=== PATIENT | male | born 1970 | race Caucasian/White ===

== ENCOUNTER 2016-12-19 17:50 | Emergency (ER) | payer BC ==
[2016-12-19 18:00] VITALS: BP 128/78; PULSE 87; TEMP 98.7; BMI 28.3
--- NOTE | 2016-12-19 18:57 | PDOC ---
History of Present Illness - General History Source: Patient, Old Records Exam Limitations: No Limitations - History of Present Illness Initial Comments: The patient is a 46 year old male with no significant past medical history, who presents to the emergency department today for further evaluation of worsening urinary urgency and dysuria for two weeks. States he is sexually active with his only. Denies sexual transmitted diseases. He denies any other medical complaints at this time. <Eran Lucas - Last Filed: 12/19/16 18:59> - General History Source: Patient Exam Limitations: No Limitations <Carlos Patel - Last Filed: 12/19/16 19:09> - General Chief Complaint: Urinary Problem Stated Complaint: URGENCY, DRIBBLING, SOME BURNING Time Seen by Provider: 12/19/16 18:23 Past History <Eran Lucas - Last Filed: 12/19/16 18:59> - Past Medical History Other medical history: DENIES - Psycho/Social/Smoking Cessation Hx Anxiety: No Suicidal Ideation: No Smoking History: Never smoked Have you smoked in the past 12 months: No Information on smoking cessation initiated: No Hx Alcohol Use: No Drug/Substance Use Hx: No Substance Use Type: Alcohol <Carlos Patel - Last Filed: 12/19/16 19:09> - Past Medical History Allergies/Adverse Reactions: Allergies Allergy/AdvReac Type Severity Reaction Status Date / Time No Known Allergies Allergy Verified 12/19/16 17:51 Home Medications: Ambulatory Orders Ciprofloxacin [Cipro -] 500 mg PO Q12H #14 tablet 12/19/16 Multivitamins [Tab-A-Vit -] 1 tab PO DAILY 12/19/16 Review of Systems - Review of Systems Able to Perform ROS?: Yes Comments:: GENERAL/CONSTITUTIONAL: No fever or chills. No weakness. HEAD, EYES, EARS, NOSE AND THROAT: No change in vision. No ear pain or discharge. No sore throat. CARDIOVASCULAR: No chest pain or shortness of breath. RESPIRATORY: No cough, wheezing, or hemoptysis. GASTROINTESTINAL: No nausea, vomiting, diarrhea or constipation. GENITOURINARY: (+) dysuria, urgency. MUSCULOSKELETAL: No joint or muscle swelling or pain. No neck or back pain. SKIN: No rash NEUROLOGIC: No headache, vertigo, loss of consciousness, or change in strength/ sensation. ENDOCRINE: No increased thirst. No abnormal weight change. HEMATOLOGIC/LYMPHATIC: No anemia, easy bleeding, or history of blood clots. ALLERGIC/IMMUNOLOGIC: No hives or skin allergy. <Eran Lucas - Last Filed: 12/19/16 18:59> *Physical Exam - Vital Signs Last Vital Signs Temp Pulse Resp BP Pulse Ox 98.7 F 87 18 128/78 100 12/19/16 17:50 12/19/16 17:50 12/19/16 17:50 12/19/16 17:50 12/19/16 17:50 - Physical Exam Comments: GENERAL: Awake, alert, and fully oriented, in no acute distress HEAD: No signs of trauma EYES: PERRLA, EOMI, sclera anicteric, conjunctiva clear ENT: Auricles normal inspection, hearing grossly normal, nares patent, oropharynx clear without exudates. Moist mucosa NECK: Normal ROM, supple, no lymphadenopathy, JVD, or masses LUNGS: Breath sounds equal, clear to auscultation bilaterally. No wheezes, and no crackles HEART: Regular rate and rhythm, normal S1 and S2, no murmurs, rubs or gallops ABDOMEN: Soft, nontender, normoactive bowel sounds. No guarding, no rebound. No masses EXTREMITIES: Normal range of motion, no edema. No clubbing or cyanosis. No cords, erythema, or tenderness NEUROLOGICAL: Cranial nerves II through XII grossly intact. Normal speech, normal gait SKIN: Warm, Dry, normal turgor, no rashes or lesions noted. <Eran Lucas - Last Filed: 12/19/16 18:59> - Vital Signs Last Vital Signs Temp Pulse Resp BP Pulse Ox 98.7 F 87 18 128/78 100 12/19/16 17:50 12/19/16 17:50 12/19/16 17:50 12/19/16 17:50 12/19/16 17:50 <Carlos Patel - Last Filed: 12/19/16 19:09> Medical Decision Making - Medical Decision Making 12/19/16 18:55 A portion of this note was documented by scribe services under my direction. I have reviewed the details of the note, within reason, and agree with the documentation with the following case summary and management plan written by me. Patient treated in the ED. Nursing notes are reviewed and incorporated into the medical decision-making. Vital signs reviewed. Peripheral IV access obtained by the nurse, laboratory studies are drawn and sent, reviewed and interpreted by myself. Vital Signs Temp Pulse Resp BP Pulse Ox 98.7 F 87 18 128/78 100 12/19/16 17:50 12/19/16 17:50 12/19/16 17:50 12/19/16 17:50 12/19/16 17:50 46-year-old male with no past medical history presents with dysuria and tonight has evidence for 2 weeks. Denies abdominal pain, fevers, chills. States he is sexually active with his only. Denies sexual transmitted diseases. Differential includes enlarged prostate versus urinary tract infection. We'll obtain a urinalysis and urine culture and reassess. 12/19/16 19:07 Urine Test Results Urine Color Yellow 12/19/16 18:17 Urine Appearance Clear 12/19/16 18:17 Urine pH 5.0 (4.5-8) 12/19/16 18:17 Ur Specific [place] 1.020 (1.005-1.025) 12/19/16 18:17 Urine Protein Negative (NEGATIVE) 12/19/16 18:17 Urine Glucose (UA) Negative (NEGATIVE) 12/19/16 18:17 Urine Ketones Negative (NEGATIVE) 12/19/16 18:17 Urine Blood 2+ (NEGATIVE) H 12/19/16 18:17 Urine Nitrite Negative (NEGATIVE) 12/19/16 18:17 Urine Bilirubin Negative (NEGATIVE) 12/19/16 18:17 Ur Leukocyte Esterase 1+ (NEGATIVE) H 12/19/16 18:17 1+ leuk. Will treat as ciprofloxacin. I advised the patient to follow up with his PMD. Pt verbalizes understanding and agrees with plan. Discharge diagnosis: UTI I discussed the physical exam findings, ancillary test results and final diagnoses with the patient. I answered all of the patient's questions. The patient was satisfied with the care received and felt comfortable with the discharge plan and treatment plan. The patient will call their primary care physician within 24 hours to arrange follow-up and will return to the Emergency Department with any new, persistant or worsening symptoms. <Carlos Patel - Last Filed: 12/19/16 19:09> *DC/Admit/Observation/Transfer - Attestations Scribe Attestion: Documentation prepared by Eran Lucas, acting as medical recruiter for aCrlos Patel MD. <Eran Lucas - Last Filed: 12/19/16 18:59> - Discharge Dispostion Admit: No <Carlos Patel - Last Filed: 12/19/16 19:09> Diagnosis at time of Disposition: UTI (urinary tract infection) Qualifiers: Urinary tract infection type: site unspecified Hematuria presence: without hematuria Qualified Code(s): N39.0 - Urinary tract infection, site not specified - Discharge Dispostion Disposition: HOME Condition at time of disposition: Stable - Prescriptions Prescriptions: Ciprofloxacin [Cipro -] 500 mg PO Q12H #14 tablet - Patient Instructions Printed Discharge Instructions: DI for Urinary Tract Infection (UTI) Additional Instructions: Your urine shows sign of an infection. Please take the antibiotic (ciprofloxacin) every 12 hours for the next week. Drink plenty of fluids and rest. Please call and schedule an appointment with your doctor.
[2016-12-19 18:59] LABS: URINE APPEARANCE Clear; URINE BILIRUBIN Negative (NEGATIVE); URINE BLOOD 2+ (NEGATIVE); URINE COLOR YELLOW; URINE GLUCOSE (UA) Negative (NEGATIVE); URINE KETONE Negative (NEGATIVE); URINE LEUK ESTERASE 1+ (NEGATIVE); URINE NITRITE Negative (NEGATIVE); URINE PROTEIN Negative (NEGATIVE); URINE UROBILINOGEN 0.2 E.U/dl (0.2-1.0)
[2016-12-19] MEDS ORDERED: CIPROFLOXACIN 500 MG TABLET (RESTRICTED TO ID) PO ONE (19:08)
[2016-12-19 19:10] LABS: URINE BACTERIA FEW /hpf (NEGATIVE); URINE WBC 30-50 (3-5)
[2016-12-19] MEDS ORDERED: CIPROFLOXACIN 250 MG TABLET (RESTRICTED TO ID) PO ONE (19:12)
== END 2016-12-19 19:10 | disposition home or self-care (01) ==
LOC: FER 17:50
DX: N39.0 Urinary tract infection, site not specified (principal)
CPT/HCPCS: 81003; 81015; 87086; 87186; 99283-25

== ENCOUNTER 2018-06-29 11:10 | Emergency (ER) | payer BC, OTHER ==
[2018-06-29 11:19] VITALS: BP 132/91; TEMP 98.8; BMI 28.3
--- NOTE | 2018-06-29 13:29 | PDOC ---
History of Present Illness - General Chief Complaint: Pain Stated Complaint: RT ARM, NUMBNESS,RT WRIST PAIN, TINGLING, Time Seen by Provider: 06/29/18 13:06 History Source: Patient - History of Present Illness Initial Comments: 06/29/18 13:23 47m with pmh of neck osteoarthritis presents to the ED for neck pain radiating to the right wrist for the past 2 weeks. He had this problem for the past year and had had an MRI done at [facility] but the tingling used to travel down the left arm , now it is both. He works as a luggage handler for an airline and felt pain in his neck as he was lifting a luggage a month ago. Denies any other symptoms. Past History - Past Medical History Allergies/Adverse Reactions: Allergies Allergy/AdvReac Type Severity Reaction Status Date / Time No Known Allergies Allergy Verified 06/29/18 11:14 Home Medications: Ambulatory Orders NK [No Known Home Medication] 06/29/18 COPD: No Other medical history: ARHTRITIS UPPER BACK, NERVE PINCH, CARPAL TUNNER LEFT - Suicide/Smoking/Psychosocial Hx Smoking History: Never smoked Have you smoked in the past 12 months: No Information on smoking cessation initiated: No Hx Alcohol Use: (social) Drug/Substance Use Hx: No Substance Use Type: Alcohol Review of Systems - Review of Systems Able to Perform ROS?: Yes Is the patient limited Guamanian proficient: No Constitutional: No: Symptoms Reported HEENTM: No: Symptoms Reported Respiratory: No: Symptoms reported Cardiac (ROS): No: Symptoms Reported ABD/GI: No: Symptoms Reported : No: Symptoms Reported Musculoskeletal: Yes: See HPI Integumentary: No: Symptoms Reported Neurological: Yes: See HPI, Paresthesia, Tingling All Other Systems: Reviewed and Negative *Physical Exam - Vital Signs Last Vital Signs Temp Pulse Resp BP Pulse Ox 98.8 F 102 H 20 132/91 100 06/29/18 11:10 06/29/18 11:10 06/29/18 11:10 06/29/18 11:10 06/29/18 11:10 - Physical Exam General Appearance: Yes: Nourished, Appropriately Dressed. No: Apparent Distress HEENT: positive: EOMI, MADHAV, Normal ENT Inspection Neck: positive: Tender (point tendernes over left paraspinal cervical area) Respiratory/Chest: positive: Lungs Clear, Normal Breath Sounds. negative: Chest Tender, Respiratory Distress Cardiovascular: positive: Regular Rhythm, Regular Rate, S1, S2 Gastrointestinal/Abdominal: positive: Normal Bowel Sounds, Flat, Soft. negative : Tender Extremity: positive: Normal Capillary Refill, Normal Inspection, Normal Range of Motion Integumentary: positive: Normal Color, Dry Neurologic: positive: Fully Oriented, Alert, Normal Mood/Affect, Normal Response , Motor Strength 5/5, Numbness (tingling over median distribution on right hand : palmar side of first 3 fingers. ) Medical Decision Making - Medical Decision Making 06/29/18 14:02 Cervical radiculopathy secondary to osteoarthritis/slipped cervical disc vs carpal tunnel syndrom. Will provide patient with wrist sling and give follow up with orthopedic surgeon Dr. Ordonez. *DC/Admit/Observation/Transfer Diagnosis at time of Disposition: Radiculopathy affecting upper extremity, Carpal tunnel syndrome - Discharge Dispostion Disposition: HOME Condition at time of disposition: Stable Decision to Admit order: No - Referrals Referrals: Therese Dey MD [Primary Care Provider] - Benny Ordonez MD [Staff Physician] - - Patient Instructions Printed Discharge Instructions: Carpal Tunnel Syndrome, DI for Cervical Radiculopathy Additional Instructions: Follwo up with Dr. Ordonez, Orthopedic Surgeon. Come back to the ER for any new, worsening or concerning symptom. - Post Discharge Activity
--- NOTE | 2018-06-29 14:00 | PDOC ---
Attending Attestation - Resident Resident Name: Angelo Encarnacion - ED Attending Attestation I have performed the following: I have examined & evaluated the patient, The case was reviewed & discussed with the resident, I agree w/resident's findings & plan, Exceptions are as noted - HPI HPI: 06/29/18 14:04 47yo M hx carpal tunnel syndrome on the right, arthritis presents to the ED with 3 months of tingling to R 1st and 2nd finger on the palmar side as well as tingling down his R proximal arm when he turns his head to the right. [place] works [place] a out[place]. Denies any weakness in the hand. Has had a steroid injection in both wrists in the past that helped his sxs. Has been taking ibuprofen with moderate relief. Denies trauma, falls, headache, visual sxs, dizziness, cp, sob, abd pain, n/v/d, urinary sxs, rashes. - Physicial Exam PE: 06/29/18 14:08 GENERAL: Awake, alert, and fully oriented, in no acute distress EYES: PERRLA, EOMI, sclera anicteric, conjunctiva clear ENT: Oropharynx clear without exudates. Moist mucosa NECK: Normal ROM, supple, no midline spinal ttp BACK: no midline thoracic or lumbar ttp LUNGS: Breath sounds equal, clear to auscultation bilaterally. No wheezes, and no crackles HEART: Regular rate and rhythm, normal S1 and S2, no murmurs, rubs or gallops ABDOMEN: Soft, nontender, normoactive bowel sounds. No guarding, no rebound. No masses EXTREMITIES: Normal range of motion, no edema. No cords, erythema, or tenderness NEUROLOGICAL: Normal speech, cranial nerves intact, 5/5 strength in all 4 extremities, decreased sensation to palmar aspect of R 1st and second digits, normal cerebellar exam, normal gait. +Tinnels test. Able to illicit numbness down RUE when turning head to the right SKIN: Warm, Dry, normal turgor, no rashes or lesions noted. - Medical Decision Making 06/29/18 14:10 47yo M presents to the ED with tingling to R 1st and 2nd digit consistent with median nerve impingement due to carpal tunnel syndrome. Pt also has tingling to RUE when turning head to the right consistent with cervical radiculopathy. Pt reporting improvement in sxs in the past with steroid injections but due to the holiday wknd, pt unable to see his doctor. Pt feeling better with brace on wrist , will prescribe naproxen for sx control. No CP, SOB, and sxs are not exertional thus no concern for cardiac risk factors. 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 Pt requests DC home I discussed the physical exam findings, ancillary test results and final diagnoses with the patient. I answered all of the patient's questions. The patient was satisfied with the care received and felt comfortable with the discharge plan and treatment plan. The patient will call their primary care physician within 24 hours to arrange follow-up and will return to the Emergency Department with any new, persistent or worsening symptoms.
[2018-06-29 14:07] VITALS: PULSE 87
== END 2018-06-29 14:10 | disposition home or self-care (01) ==
LOC: SUPCPDRO 11:10 → FER 11:10
DX: M54.10 Radiculopathy, site unspecified (principal); G56.00 Carpal tunnel syndrome, unspecified upper limb
CPT/HCPCS: 99283-25

== ENCOUNTER 2018-11-27 18:22 | Emergency (ER) | payer BC ==
[2018-11-27 18:35] VITALS: BP 135/94; PULSE 76; TEMP 97.8; BMI 27.9
[2018-11-27] MEDS ORDERED: predniSONE 20 MG TABLET (UD) PO ONE (19:48)
[2018-11-27] MEDS ORDERED: predniSONE 20 MG TABLET (UD) ONE (19:49)
--- NOTE | 2018-11-27 19:50 | PDOC ---
Documentation entered by Jose Jiang SCRIBE, acting as scribe for Daniel Maradiaga MD. Daniel Maradiaga MD: This documentation has been prepared by the Deidre cooper Juan Manue, SCRIBE, under my direction and personally reviewed by me in its entirety. I confirm that the documentation accurately reflects all work, treatment, procedures, and medical decision making performed by me. History of Present Illness - General Chief Complaint: Pain Stated Complaint: neck pain Time Seen by Provider: 11/27/18 19:25 History Source: Patient Exam Limitations: No Limitations - History of Present Illness Initial Comments: 11/27/18 19:52 The patient is a 48 year old male, who presents to the ED complaining of neck pain for the past 6 days. He reports that his pain ranges from mild to moderate , and limits the turning of his head to the sides. The patient notes taking Aleve and Advil every 6 hours with minimal relief of his symptoms. He notes that he did paint a room where he had to paint the ceiling, stretching his neck backwards. He states that this may have exacerbated his arthritis neck. He notes that he does have an orthopedic to follow up with. The patient denies chest pain, shortness of breath, headache and dizziness. PAST MEDICAL HISTORY: Arthritis neck PAST SURGICAL HISTORY: no significant history FAMILY HISTORY: no pertinent history SOCIAL HISTORY: Pt lives with family and is employed. MEDICATIONS: reviewed ALLERGIES: As per nursing notes General: No fevers or chills, no weakness, no weight loss HEENT: No change in vision. No sore throat,. No ear pain CardioVascular: No chest pain or shortness of breath Respiratory:No cough, or wheezing. Gastrointestinal: no nausea, vomiting, diarrhea or constipation, No rectal bleeding Genitourinary: No dysuria, hematuria, or frequency Musculoskeletal: (+) Neck pain. No joint or muscle pain or swelling Neurologic: No headache, vertigo, dizziness or loss of consciousness Psychiatric: nor depression Skin: No rashes or easy bruising Endocrine: no increased thirst or abnormal weight change Allergic: no skin or latex allergy All other systems reviewed and normal General: Well-nourished well-developed individual, no acute distress HEENT: Throat: Normal, tonsils normal, no erythema or exudate Neck: Supple, no meningeal signs, no lymphadenopathy Chest: Nontender to palpation Cardiac: S1-S2 normal, regular rate and rhythm, no murmurs rubs or gallops Respiratory: Lungs clear to auscultation bilateral Skin: No rashes Neuro: Alert and oriented x3, nonfocal exam, grossly intact, normal gait Assessment and plan: This is a 48-year-old male with neck pain/torticollis patient has had symptoms times several days. Patient said they began after he was doing some painting over his head. Patient has been taking some anti- inflammatories but otherwise has not followed up with anybody. I recommended the patient continued to take out of time inflammatory's for a few more days and follow-up with his doctor early next week if not improved. I also gave him a prescription for a muscle relaxant that he can take at night. Past History - Past Medical History Allergies/Adverse Reactions: Allergies Allergy/AdvReac Type Severity Reaction Status Date / Time No Known Allergies Allergy Verified 11/27/18 18:23 Home Medications: Ambulatory Orders Cyclobenzaprine HCl [Flexeril 10 mg] 10 mg PO HS #14 tablet 11/27/18 COPD: No Other medical history: arthirits neck - Suicide/Smoking/Psychosocial Hx Smoking History: Never smoked Have you smoked in the past 12 months: No Hx Alcohol Use: Yes (socially) Drug/Substance Use Hx: No Substance Use Type: Alcohol *Physical Exam - Vital Signs Last Vital Signs Temp Pulse Resp BP Pulse Ox 97.8 F 76 18 135/94 99 11/27/18 18:23 11/27/18 18:23 11/27/18 18:23 11/27/18 18:23 11/27/18 18:23 *DC/Admit/Observation/Transfer Diagnosis at time of Disposition: Torticollis, acquired - Discharge Dispostion Disposition: HOME Condition at time of disposition: Stable Decision to Admit order: No - Prescriptions Prescriptions: Cyclobenzaprine HCl [Flexeril 10 mg] 10 mg PO HS #14 tablet - Referrals - Patient Instructions Additional Instructions: Continue to take an anti-inflammatory Aleve 2 tablets twice a day. Addition to that get the prescription filled that I gave you for Flexeril and take one before bed. If not improved by a Sunday of next week follow up with an orthopedist. Return to the emergency department immediately with ANY new, persistent or worsening symptoms. Continue any medications as previously prescribed by your physician. You should follow up with your primary doctor as soon as possible regarding today's emergency department visit. . Please make sure your doctor reviews the results of your emergency evaluation. Thank you for coming to the Emergency Department today for your care. It was a pleasure to see you today. Please note that your evaluation is INCOMPLETE until you follow-up with your doctor. - Post Discharge Activity - Attestations Scribe Attestion: 11/27/18 19:52 Documentation prepared by Jose Jiang, acting as medical asst for Daniel Maradiaga MD
== END 2018-11-27 19:57 | disposition home or self-care (01) ==
LOC: FER 18:22
DX: M43.6 Torticollis (principal)
CPT/HCPCS: 99282-25

== ENCOUNTER 2019-01-22 15:28 | Emergency (ER) | payer BC ==
--- NOTE | 2019-01-22 15:38 | PDOC ---
History of Present Illness - General Chief Complaint: Eye Problem Stated Complaint: eye pain Time Seen by Provider: 01/22/19 15:38 - History of Present Illness Initial Comments: 01/22/19 16:09 The patient is a 48 year old male with no significant PMH who presents for evaluation of right eye pain. The patient reports intermittent right eye pain and redness over the past 1 week associated with wearing his contact lenses prompting his presentation to the ED for further evaluation. He notes that the patient improves with over the counter eye drops and wearing his glasses. He otherwise denies any visual disturbances, blurry vision, headache, fevers, chills, SOB, chest pain, nausea, vomiting, abdominal pain, or changes with urination or bowel movements. Past History - Past Medical History Allergies/Adverse Reactions: Allergies Allergy/AdvReac Type Severity Reaction Status Date / Time No Known Allergies Allergy Verified 01/22/19 15:29 Home Medications: Ambulatory Orders Sulfacetamide Sodium 10% [Bleph-10 Ophthalmic Solution -] 1 drop OD Q3H #1 bottle 01/22/19 COPD: No - Suicide/Smoking/Psychosocial Hx Smoking History: Never smoked Have you smoked in the past 12 months: No Hx Alcohol Use: Yes (socially) Drug/Substance Use Hx: No Substance Use Type: Alcohol Review of Systems - Review of Systems Comments:: 01/22/19 16:11 Constitutional: No fevers, chills, fatigue, malaise HEENT: Right Eye pain. No Rhinorrhea, nasal congestion, visual changes Cardiovascular: No chest pain, syncope, palpitations, lightheadedness Respiratory: No Cough, SOB, Hemoptysis, Gastrointestinal: No Abdominal pain, Nausea, Vomiting, Constipation, Diarrhea, Melena Genitourinary: No Dysuria, Frequency, Urgency, Hesitancy, Hematuria, Flank pain Musculoskeletal: No Myalgia, arthralgia Skin: No rashes, itching, bruising, pallor Neurologic: No Headache, Dizziness, Numbness, Weakness, or Tingling Psychiatric: No Hallucinations. No SI or HI *Physical Exam - Physical Exam Comments: 01/22/19 16:11 General Appearance: Nourished. No Apparent Distress HEENT: Visual Acute 20/40 RT eye and 20/25 in LT eye. PERRLA, EOMI, No Pharyngeal Erythema, Tonsillar Exudate, Tonsillar Erythema Neck: No Cervical Lymphadenopathy Respiratory/Chest: Lungs Clear, Normal Breath Sounds. No Crackles, Rales, Rhonchi, Wheezing Cardiovascular: Regular Rhythm, Regular Rate. No Murmur, Gallops, Rubs Gastrointestinal/Abdominal: Normal Bowel Sounds, Soft. No Guarding, Rebound, Tenderness Musculoskeletal: No CVA Tenderness Extremity: Normal Capillary Refill Integumentary: Normal Color, Dry, Warm Neurologic: Fully Oriented, Alert, Normal Mood/Affect, Normal Response, Medical Decision Making - Medical Decision Making 01/22/19 16:13 The patient is a 48 year old male with no significant PMH who presents for evaluation of right eye pain. Given the patient's history and physical exam, we performed a fluroscene stain on the patient's eye that did not demonstrate any evidence of corneal abrasion. However, given the patient's history, we will treat with sulfacetamide eye drops and have the patient follow up with his ophthomologist. We have instructed the patient to not wear his contacts until then. We are comfortable discharging the patient home in stable condition. Patient made aware of impression and plan, return precautions discussed including but not limited to worsening pain or symptoms, fevers, or signs of infection, chest pain, respiratory distress, inability to tolerate oral intake, dehydration, syncope, or neurologic changes. The patient is to follow up with PMD as recommended within 1 week, follow up information provided and the patient will call for an appointment. The patient is to take medications as instructed for duration of time and continue with supportive care, avoid triggers and precipitants. Patient is safe for outpatient follow-up. *DC/Admit/Observation/Transfer Diagnosis at time of Disposition: Eye pain Qualifiers: Laterality: right Qualified Code(s): H57.11 - Ocular pain, right eye - Discharge Dispostion Disposition: HOME Condition at time of disposition: Stable - Prescriptions Prescriptions: Sulfacetamide Sodium 10% [Bleph-10 Ophthalmic Solution -] 1 drop OD Q3H #1 bottle - Referrals - Patient Instructions Printed Discharge Instructions: DI for Eye Pain Additional Instructions: 1) Please follow-up with your primary care doctor in the next 2-3 days. Please call tomorrow to schedule a follow up appointment. If you cannot follow up with your doctor within 1 week please return to the Emergency Department for any urgent issues. 3) If you have any worsening of symptoms or any other concerns please return to the ER immediately. Return if worsening symptoms including fevers, headache, vomiting, visual or hearing disturbances, abdominal pain, chest pain, shortness of breath, syncope, dehydration, inability to take things by mouth/vomiting, altered mental status, or worsening concerning symptoms. 4) Please continue taking your home medications as directed. Side effects may include upset stomach, abdominal pain, vomiting, or diarrhea. Do not drink alcohol with your medications. - Post Discharge Activity
--- NOTE | 2019-01-22 15:41 | PDOC ---
Attending Attestation - Resident Resident Name: Marlo Melgar - ED Attending Attestation I have performed the following: I have examined & evaluated the patient, The case was reviewed & discussed with the resident, I agree w/resident's findings & plan, Exceptions are as noted - HPI HPI: 01/22/19 16:08 Recurrent eye irritation subsequent to wearing contact lenses. When he leaves the lenses out for 24-48 hours, symptoms resolved. Symptoms consistent irritation, minimal discharge, no change in vision. - Physicial Exam PE: 01/22/19 16:09 Physical exam: PERRLA, fundi benign, EOMs full without diplopia, visual pedraza intact to confrontation, visual acuity intact. Conjunctivae show no injection. No staining is evident with further seen. Anterior chamber is clear. No discharge at present. - Medical Decision Making 01/22/19 16:10 Assessment: Intermittent irritation from contact lenses or solution. No sign of significant corneal damage/abrasion/ulceration. Plan: No contact use until reevaluation by an director of optimization. Warm compresses and antibiotic drops as directed. Return to ER if there is significant pain or change in vision.
[2019-01-22] MEDS ORDERED: TETRACAINE 0.5% OPHTH SOLN 2 ML BOTTLE ONE (15:45)
[2019-01-22] MEDS ORDERED: TETRACAINE 0.5% HCL 0.6ML DROPPER.BOTTLE OD ONE (15:45)
[2019-01-22] MEDS ORDERED: FLUORESCEIN NA 1 EA STRIP ONE (15:45)
[2019-01-22] MEDS ORDERED: FLUORESCEIN NA 1 EA STRIP OD ONE (15:45)
[2019-01-22 15:54] VITALS: BP 129/88; PULSE 96; TEMP 98.6; BMI 28.3
== END 2019-01-22 16:16 | disposition home or self-care (01) ==
LOC: FER 15:28
DX: H57.11 Ocular pain, right eye (principal)
CPT/HCPCS: 99281-25

== ENCOUNTER 2019-08-20 18:15 | Emergency (ER) | payer BC ==
[2019-08-20 18:59] VITALS: BP 146/91; PULSE 88; TEMP 98.4; BMI 28.3
--- NOTE | 2019-08-20 19:08 | PDOC ---
History of Present Illness - General Chief Complaint: Edema Stated Complaint: SWELLING TO 4TH TOE LEFT SIDE Time Seen by Provider: 08/20/19 18:53 History Source: Patient Exam Limitations: No Limitations - History of Present Illness Initial Comments: 48 yo M with no past medical history presents to the emergency department with left foot 4th digit pain and a rash on the inferior portion of the coccyx. Per the patient, the rash has been present for approximately 1 year with occasional flare ups with this most recent episode lasting 1 month without resolve with neosporin. Per the patient, he states his toe has been hurting for 2 weeks and denies traumatic experiences. [place] protective steel toe footwear. Denies loss of sensation. Denies the following: fever, chills, SOB, chest pain, nausea, vomiting, abdominal pain, dysuria, hematuria, diarrhea, constipation, melenea, hematochezia, and leg pain/ swelling. Past History - Past Medical History Allergies/Adverse Reactions: Allergies Allergy/AdvReac Type Severity Reaction Status Date / Time No Known Allergies Allergy Verified 08/20/19 18:17 Home Medications: Ambulatory Orders Clotrimazole [Lotrimin -] 1 applic TP BID 28 Days #1 tube 08/20/19 COPD: No - Psycho Social/Smoking Cessation Hx Smoking History: Never smoked Have you smoked in the past 12 months: No Information on smoking cessation initiated: No Hx Alcohol Use: Yes (SOCIAL) Drug/Substance Use Hx: No Substance Use Type: Alcohol Review of Systems - Review of Systems Able to Perform ROS?: Yes Is the patient limited Romanian proficient: No Constitutional: No: Chills, Diaphoresis, Fever, Weakness HEENTM: No: Eye Pain, Ear Pain, Nose Pain, Throat Pain, Mouth Pain Respiratory: No: Cough, Shortness of Breath, Hemoptysis Cardiac (ROS): No: Chest Pain, Lightheadedness, Palpitations, Chest Tightness ABD/GI: No: Constipated, Diarrhea, Nausea, Rectal Bleeding, Vomiting, Indigestion, Abdominal cramping, Tarry Stools : No: Burning, Dysuria, Hematuria Musculoskeletal: No: Back Pain, Joint Pain, Neck Pain Integumentary: Yes: Rash. No: Bruising, Erythema Neurological: No: Headache, Numbness, Tingling, Tremors Psychiatric: No: Change in Appetite Endocrine: No: Unexplained Weight Loss Hematologic/Lymphatic: No: Anemia *Physical Exam - Vital Signs Last Vital Signs Temp Pulse Resp BP Pulse Ox 98.4 F 88 18 146/91 97 08/20/19 18:17 08/20/19 18:17 08/20/19 18:17 08/20/19 18:17 08/20/19 18:17 - Physical Exam General Appearance: Yes: Nourished, Appropriately Dressed. No: Apparent Distress, Intoxicated HEENT: positive: EOMI, MADHAV Discharge - Discharge Information Problems reviewed: Yes Clinical Impression/Diagnosis: Tinea corporis Condition: Stable Disposition: HOME - Additional Discharge Information Prescriptions: Clotrimazole [Lotrimin -] 1 applic TP BID 28 Days #1 tube - Follow up/Referral Referrals: Therese Dey MD [Primary Care Provider] - - Patient Discharge Instructions Patient Printed Discharge Instructions: DI for Ringworm, DI for Tinea Corporis Additional Instructions: please use the medication twice applied to the affected area for 4 weeks. if not better within 4 weeks, please follow up with your primary medical doctor within 1 week after completion of the 4 weeks. please return if you have worsening symptoms or new concerning symptoms. thank you. - Post Discharge Activity Work/Back to School Note: Back to Work
--- NOTE | 2019-08-20 19:18 | PDOC ---
Attending Attestation - Resident Resident Name: Kvng Snow - ED Attending Attestation I have performed the following: I have examined & evaluated the patient, The case was reviewed & discussed with the resident, I agree w/resident's findings & plan, Exceptions are as noted - HPI HPI: 08/22/19 09:34 Swollen toe and rash on buttock. 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 - Physicial Exam PE: 08/22/19 09:35 Physical exam alert and oriented no acute distress Vital signs normal Left fourth toe: Mild swelling, which is diffuse, is present. There appears to be the beginning of a hammertoe. There is no other deformity. There is no warmth, erythema, or induration. There is minimal tenderness. There is a circular rash with raised scaly borders on the buttock in the fold overlying the lower spine and coccyx. There is no swelling induration or drainage that would suggest a pilonidal cyst - Medical Decision Making 08/22/19 09:37 Assessment: Hammertoe, with swelling due to pressure from the top of the shoe. Tinea corporis. Plan: Puzzle [employer]sembler referral for possible orthotic. Rest ice and elevation at home when not working. Antifungal cream for the buttock. Follow-up primary physician.
== END 2019-08-20 19:21 | disposition home or self-care (01) ==
LOC: SUPCPDRO 18:15 → FER 18:15
DX: B35.4 Tinea corporis (principal)
CPT/HCPCS: 99282-25

== ENCOUNTER 2022-11-01 17:22 | Emergency (ER) | payer BC ==
[2022-11-01 17:41] VITALS: RESP 18; TEMP 98.6; BMI 28.8
[2022-11-01 18:30] LABS: EPITHELIAL CELLS FEW /hpf
[2022-11-01 19:35] LABS: ALBUMIN 4.1 g/dl (3.4-5.0); BILIRUBIN,TOTAL 0.7 mg/dl (0.2-1); CALCIUM 9.3 mg/dl (8.5-10); CREATININE 0.9 mg/dl (0.55-1.3); TOT PROT 7.8 g/dl (6.4-8.2)
[2022-11-01 21:17] LABS: HEMATOCRIT 37.1 % (35.4-49); HEMOGLOBIN 12.4 GM/dL (11.7-16.9); MCH 28.2 pg (25.7-33.7); MCHC 33.4 g/dl (32.0-35.9); MEAN CELL VOLUME 84.6 fl (80-96); MEAN PLT VOLUME 8.2 fl (7.5-11.1); PLATELET COUNT 349 10^3/uL (134-434); RBC 4.39 M/mm3 (4.00-5.60); WHITE BLOOD COUNT 13.1 K/mm3 (4.0-10.0)
[2022-11-01 21:43] LABS: ANISOCYTOSIS 1+; MACROCYTOSIS 0
[2022-11-01 22:49] VITALS: BP 144/87; PULSE 107
== END 2022-11-01 22:50 | disposition home or self-care (01) ==
LOC: FER 17:22
DX: N45.1 Epididymitis (principal); R31.9 Hematuria, unspecified; L04.9 Acute lymphadenitis, unspecified; K80.20 Calculus of gallbladder without cholecystitis without obstruction; K76.0 Fatty (change of) liver, not elsewhere classified
CPT/HCPCS: 36415; 74176-TC; 76870-TC; 80053; 81003; 81015; 85027; 87077; 87086; 87491; 87591; 99285-25

== ENCOUNTER 2024-02-29 07:28 | Emergency (ER) | payer BC ==
[2024-02-29] MEDS ORDERED: FLUORESCEIN NA 1 EA STRIP ONE (07:45)
[2024-02-29] MEDS ORDERED: TETRACAINE 0.5% OPHTH SOLN 2 ML BOTTLE ONE (07:47)
[2024-02-29 08:05] VITALS: BP 158/83; PULSE 87; RESP 18; TEMP 98.6; BMI 28.4
== END 2024-02-29 08:49 | disposition home or self-care (01) ==
LOC: FER 07:28
DX: H57.11 Ocular pain, right eye (principal); H10.9 Unspecified conjunctivitis; H57.89 Other specified disorders of eye and adnexa
CPT/HCPCS: 99283-25